=== PATIENT | female | born 1960 | race African-American/Black ===

== ENCOUNTER 2016-09-10 20:27 | Emergency (ER) | payer OTHER ==
[~2016-09-10] VITALS: Ht 170.2 cm; Wt 62.0 kg
[~2016-09-10 20:27] MED LIST: HYDR-3533 PO
[2016-09-10 20:29] VITALS: BP 171/83; PULSE 94; RESP 14; TEMP 97.9; O2SAT 98
[2016-09-10] MEDS ORDERED: AMOX500C PO (22:19)
[2016-09-10] MEDS ORDERED: CORT1SOL LEFT EAR (22:19)
--- NOTE | 2016-09-10 22:28 | PD ---
HPI Chief Complaint: ENT Complaint Time Seen by Provider: 22:22 Travel History International Travel<30 days: No Contact w/Intl Traveler<30days: No Traveled to known affect area: No History of Present Illness HPI 55-year-old black female presents emergency department with a four-day history of left ear pain. She states the pain radiates down into her left neck and throat. She has associated sore throat. Pain is moderate. She denies any fever or chills. She denies using Q-tips or putting anything in her ear. Symptoms are worse with swallowing. No palliative activity. PFSH Past Medical History Hx Anticoagulant Therapy: Yes Blood Disorders: No Anxiety: No Depression: No Cancer: No Cardiovascular Problems: Yes High Cholesterol: No Chemotherapy: No Endocrine: No Genitourinary: No Hypertension: Yes Immune Disorder: No Musculoskeletal: No Neurologic: No Psychiatric: No Reproductive: No Respiratory: No Tetanus Vaccination: < 5 Years Menopausal: Yes Past Surgical History AICD: No Arteriovenous Shunt: No Insulin Pump: No Joint Replacement: No Pacemaker: No Other Surgery: Yes Social History Alcohol Use: Yes (OCCASIONALLY; 1 PINT OF HARD LIQUOR/WK) Tobacco Use: Yes (1PPD) Substance Use: No Allergies-Medications (Allergen,Severity, Reaction): Coded Allergies: No Known Allergies (Verified , 09/10/16) Reported Meds & Prescriptions Reported Meds & Active Scripts Active Cortisporin HC Otic Drops (Xbrgatis-Biplujnis-UQ Otic Drops) 3.5-10,000-1 Mg- Units-% Soln 4 Drop LEFT EAR QID Amoxicillin 500 Mg Cap 500 Mg PO TID Lortab 5 mg/325 mg (Hydrocodone/Acetaminophen 5 mg/325 mg) 1 Tab 1 Tab PO Q6H PRN Review of Systems Except as stated in HPI: all other systems reviewed are Neg General / Constitutional: No: Fever, Chills HENT: Positive: Sore Throat, Earache, No: Congestion, Neck Pain, Gingival Bleeding, Dental Difficulties, Ear Discharge Cardiovascular: No: Chest Pain or Discomfort, Palpitations Respiratory: No: Cough, Shortness of Breath Gastrointestinal: No: Nausea, Vomiting Physical Exam Narrative GENERAL: Well-developed, well-nourished in no acute distress. Nontoxic appearing. HEAD: Normocephalic, atraumatic. EYES: Pupils equal round and reactive. Extraocular motions intact. No scleral icterus. No injection or drainage. ENT: The right is clear without erythema. The left TM is nonvisualized due to cerumen. The external auditory canals without pain to palpation of the pinna or tragus. There is cerumen in the canal.. Nose: clear . Posterior pharynx is pink and moist. No tonsillar edema or exudate. Uvula midline. Airway patent. NECK: Trachea midline.Supple, nontender, moves head freely. No central bony tenderness or spasm. CARDIOVASCULAR: Regular rate and rhythm without murmurs, gallops, or rubs. RESPIRATORY: Clear to auscultation. Breath sounds equal bilaterally. No wheezes , rales, or rhonchi. GASTROINTESTINAL: Abdomen soft, non-tender, nondistended. No hepato-splenomegaly , or palpable masses. No guarding. EXTREMITIES: No clubbing, cyanosis, or edema. No joint tenderness, effusion, or edema noted. BACK: Nontender without deformity or crepitance. No flank tenderness. Data Data Last Documented VS Vital Signs Date Time Temp Pulse Resp B/P Pulse Ox O2 Delivery O2 Flow Rate FiO2 09/10/16 20:29 97.9 94 14 171/83 98 Room Air Orders Amoxicillin (Trimox) (09/10/16 22:30) Ibuprofen (Motrin) (09/10/16 22:30) MDM Medical Decision Making Medical Screen Exam Complete: Yes Emergency Medical Condition: Yes Medical Record Reviewed: Yes Differential Diagnosis Differential diagnosis otitis media, otitis externa, mastoiditis, TMJ, cerumen impaction, dental infection Narrative Course The patient's left TM is not visualized due to cerumen. She complains of pain in the left ear. She has no reproducible pain to palpation of the pinna and tragus. I will cover her with amoxicillin to cover any inner ear infection or possible dental infection. I see no obvious intraoral infection or strep throat. She is encouraged to follow-up with a clinic in one week. Patient's given amoxicillin 500 mg by mouth and Motrin 600 mg by mouth. This is left otalgia, cerumen impaction Diagnosis Primary Impression: Otalgia, left ear Additional Impression: Impacted cerumen of left ear Patient Instructions: General Instructions Additional Instructions: Rest. Cortisporin otic drops and amoxicillin. 3 Advil every 6 hours as needed for pain. Follow-up with the clinic in one week. Return to the ER for any problems. Med/Other Pt SpecificInfo: Prescription(s) given Scripts Pfyrmrby-Gvkxqkwwv-OU Otic Drops (Cortisporin HC Otic Drops)3.5-10,000-1 Mg- Units-% Soln4 Drop LEFT EAR QID #1 BOTTLE Prov:Lilia Wheat MD 09/10/16 Amoxicillin 500 Mg Kre131 Mg PO TID #30 CAP Prov:Lilia Wheat MD 09/10/16 Disposition: 01 DISCHARGE HOME Condition: Stable Mike Christianson Sep 10, 2016 22:28
[2016-09-10] MEDS ORDERED: IBUPROFEN 600 MG TAB PO ONE (22:30)
[2016-09-10] MEDS ORDERED: AMOXICILLIN (TRIHYDRATE) 500 MG CAP PO ONE (22:30)
[2017-01-26] MEDS ORDERED: TRIAM.1%T TOPICAL ×2 (10:06→10:18)
[2017-01-27] MEDS ORDERED: CIPR-9 PO (11:40)
== END 2016-09-10 22:36 | disposition home or self-care (01) ==
LOC: NEPB 20:27
DX: H92.02 Otalgia, left ear (principal); H61.22 Impacted cerumen, left ear; I10 Essential (primary) hypertension; F17.200 Nicotine dependence, unspecified, uncomplicated; Z86.79 Personal history of other diseases of the circulatory system
CPT/HCPCS: 99283

== ENCOUNTER → 2017-01-26 | Outpatient (CLI) | payer OTHER ==
[~2017-01-26] MED LIST changes: +AMOX500C PO; +CIPR-9 PO; +CORT1SOL LEFT EAR; +TRIAM.1%T TOPICAL
[2017-01-26 11:26] LABS: AUTOMATED NEUTROPHIL # 2.7 TH/MM3 (1.8-7.7); BASOPHIL % 0.6 % (0.0-2.0); EOSINOPHIL % 0.2 % (0.0-4.0); HEMATOCRIT 37.8 % (35.0-46.0); HEMO FLAGS DIFF FINAL; LYMPH % 29.9 % (9.0-44.0); LYMPHOCYTE # 1.4 TH/MM3 (1.0-4.8); MEAN CORPUSCULAR HGB CONC 33.3 % (32.0-36.0); MONO % 12.3 % (0.0-8.0); PLATELET COUNT 116 TH/MM3 (150-450); RED CELL DISTRIBUTION WIDTH 16.8 % (11.6-17.2); WHITE BLOOD COUNT 4.8 TH/MM3 (4.0-11.0)
[2017-01-26 11:33] LABS: BACTERIA, URINE MANY /hpf; BLOOD, URINE NEG (NEG); COMMENT (UR) CULTURE INDICATED; CULTURE IF INDICATED CULTURE INDICATED; GLUCOSE,URINE NEG (NEG); KETONE, URINE NEG (NEG); PH, URINE 6.5 (5.0-8.5); SQUAMOUS EPITHELIAL CELL URINE 4 /hpf (0-5); URINE COLOR YELLOW (YELLW/STRAW)
[2017-01-26 11:36] LABS: NITRITE,URINE POS (NEG)
[2017-01-26 12:00] LABS: ALT (GPT) 51 U/L (10-53); ANION GAP 12 MEQ/L (5-15); AST (GOT) 236 U/L (15-37); BICARBONATE 26.5 MEQ/L (21.0-32.0); BLOOD UREA NITROGEN 12 MG/DL (7-18); CHLORIDE 103 MEQ/L (98-107); GLOMERULAR FILTRATION RATE 89 ML/MIN (>89); GLUCOSE,FASTING 64 MG/DL (74-99); SODIUM (NA) 141 MEQ/L (136-145)
[2017-01-26 12:07] LABS: ALKALINE PHOSPHATASE 88 U/L (45-117); HDL CHOLESTEROL 85.8 MG/DL (40.0-60.0); LDL CHOLESTEROL 21 MG/DL (0-99)
== END ==
LOC: CLAB 10:41
PROVIDERS: ATTEND Family Medicine
DX: D69.6 Thrombocytopenia, unspecified (principal); I10 Essential (primary) hypertension; E78.5 Hyperlipidemia, unspecified; F10.10 Alcohol abuse, uncomplicated; R82.90 Unspecified abnormal findings in urine; B96.20 Unspecified Escherichia coli [E. coli] as the cause of diseases classified elsewhere; Z91.19 Patient's noncompliance with other medical treatment and regimen; Z72.0 Tobacco use
CPT/HCPCS: 36415; 80053; 80061; 81001; 84443; 85025; 87077; 87086; 87186

== ENCOUNTER 2017-07-09 20:24 | Emergency (ER) | payer OTHER ==
[~2017-07-09] VITALS: Ht 170.2 cm; Wt 77.0 kg
[~2017-07-09 20:24] MED LIST changes: -AMOX500C PO; -CIPR-9 PO; -CORT1SOL LEFT EAR; -HYDR-3533 PO
[2017-07-09 20:29] VITALS: BP 159/106; PULSE 91; RESP 14; TEMP 98.2; O2SAT 100
[2017-07-09] MEDS ORDERED: AUGM875T3 PO (21:08)
[2017-07-09] MEDS ORDERED: PRED-503 PO (21:08)
[2017-07-09] MEDS ORDERED: AMOXICILLIN/CLAVULANATE K 875 MG TAB PO ONE (21:15)
[2017-07-09] MEDS ORDERED: predniSONE 20 MG TAB PO ONE (21:15)
--- NOTE | 2017-07-09 21:28 | PD ---
HPI Chief Complaint: Skin Problem Time Seen by Provider: 21:00 Travel History International Travel<30 days: No Contact w/Intl Traveler<30days: No Traveled to known affect area: No History of Present Illness HPI 56-year-old black female presents to emergency department with complaints of a worsening rash to her lips. She states that she has lupus and has always had problems with rashes on her lips. She typically uses triamcinolone cream 3 times daily. She ran of her medication last week. She has been using over-the- counter Vaseline. She states that her lists have cracked more have become swollen and more tender. She also states that she's had a few lesions on her upper extremities and back. She denies any fever or chills. No nausea vomiting. No difficulty swallowing. No shortness of breath or wheezing. Patient does admit to coughing and congestion. No glossal edema. No changes in her medication other than stopping her triamcinolone. PFSH Past Medical History Narrative Medical Hypertension, lupus Hx Anticoagulant Therapy: Yes Blood Disorders: No Anxiety: No Depression: No Cancer: No Cardiovascular Problems: Yes High Cholesterol: No Chemotherapy: No Endocrine: No Genitourinary: No Hypertension: Yes Immune Disorder: No Musculoskeletal: No Neurologic: No Psychiatric: No Reproductive: No Respiratory: No Menopausal: Yes Past Surgical History AICD: No Arteriovenous Shunt: No Insulin Pump: No Joint Replacement: No Pacemaker: No Other Surgery: Yes Social History Alcohol Use: Yes (OCCASIONALLY; 1 PINT OF HARD LIQUOR/WK) Tobacco Use: Yes (1PPD) Substance Use: No Allergies-Medications (Allergen,Severity, Reaction): Coded Allergies: No Known Allergies (Verified Adverse Reaction, Unknown, 07/09/17) Reported Meds & Prescriptions Reported Meds & Active Scripts Active Deltasone (Prednisone) 20 Mg Tab 20 Mg PO BID 7 Days Augmentin (Amoxicillin-Clavulanate) 875-125 Mg Tab 1 Tab PO BID Triamcinolone Topical (Triamcinolone Acetonide) 0.1 % Oint 1 Applic TOPICAL QID Review of Systems General / Constitutional: No: Fever Eyes: No: Visual changes HENT: Positive: Congestion, No: Headaches, Sore Throat, Neck Pain, Earache Cardiovascular: No: Chest Pain or Discomfort Respiratory: Positive: Cough, No: Shortness of Breath Gastrointestinal: No: Abdominal Pain Genitourinary: No: Dysuria Musculoskeletal: No: Pain Skin: Positive Rash, Positive Lesions Neurologic: No: Weakness Psychiatric: No: Depression Endocrine: No: Polydipsia Hematologic/Lymphatic: No: Easy Bruising Physical Exam Narrative GENERAL: Well-developed, well-nourished in no acute distress. Nontoxic appearing. HEAD: Normocephalic, atraumatic. EYES: Pupils equal round and reactive. Extraocular motions intact. No scleral icterus. No injection or drainage. ENT: TMs clear without erythema. The external auditory canals clear. Nose: clear . Posterior pharynx is pink and moist. No tonsillar edema or exudate. Uvula midline. Airway patent. Patient has mild edema of the lips. She has some scaling and cracking. The oral cavity is clear. The tongue is normal. No lesions on the buccal mucosa or palate. NECK: Trachea midline.Supple, nontender, moves head freely. No central bony tenderness or spasm. CARDIOVASCULAR: Regular rate and rhythm without murmurs, gallops, or rubs. RESPIRATORY: Scattered rhonchi. Upper airway noise. No Rales or wheezes. GASTROINTESTINAL: Abdomen soft, non-tender, nondistended. No hepato-splenomegaly , or palpable masses. No guarding. EXTREMITIES: No clubbing, cyanosis, or edema. No joint tenderness, effusion, or edema noted. The patient has a few circular 1 cm school related lesions on the upper shoulders and upper back. There is no sign of infection. No erythema. These lesions are scabbed. There appeared to be excoriated. BACK: Nontender without deformity or crepitance. No flank tenderness. Data Data Last Documented VS Vital Signs Date Time Temp Pulse Resp B/P (MAP) Pulse Ox O2 Delivery O2 Flow Rate FiO2 07/09/17 20:29 98.2 91 14 159/106 (123) 100 Room Air Orders Orders Prednisone (Deltasone) (07/09/17 21:15) Amoxicil-Clavulanate (Augmentin) (07/09/17 21:15) Ed Discharge Order (07/09/17 21:20) MDM Medical Decision Making Medical Screen Exam Complete: Yes Emergency Medical Condition: Yes Medical Record Reviewed: Yes Differential Diagnosis MDM: High Differential diagnoses: Abscess, folliculitis, cellulitis, lymphangitis, abrasion, contact dermatitis, lupus Narrative Course I suspect patient's dermatitis of her lips is from her lupus. She states that she stopped using her triamcinolone cream last week. She has not gotten a refill. With her rash on her shoulders and lips she'll be given oral prednisone 60 mg and she'll be started on Augmentin for her cough. We treated for bronchitis. 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 Daily wound care with soap and water. Prednisone and Augmentin. Recheck with your doctor on Wednesday. Return to the ER over the weekend if you have any worsening symptoms. Med/Other Pt SpecificInfo: Prescription(s) given Scripts Prednisone (Deltasone) 20 Mg Tab 20 MG PO BID for 7 Days, #14 TAB 0 Refills Prov: Angel Donohue MD 07/09/17 Amoxicillin-Clavulanate (Augmentin) 875-125 Mg Tab 1 TAB PO BID for Infection, #20 TAB 0 Refills Prov: Angel Donohue MD 07/09/17 Disposition: 01 DISCHARGE HOME Condition: Stable Mike Christianson Jul 09, 2017 21:28
== END 2017-07-09 21:48 | disposition home or self-care (01) ==
LOC: NEPK 20:24
DX: L93.0 Discoid lupus erythematosus (principal); J40 Bronchitis, not specified as acute or chronic; I10 Essential (primary) hypertension; F17.290 Nicotine dependence, other tobacco product, uncomplicated
CPT/HCPCS: 99284; J7512